=== PATIENT | female | born 1970 | race Two or more races ===

== ENCOUNTER → 2019-09-21 | Outpatient (CLI) | payer OTHER ==
[~2019-09-21] VITALS: Ht 160 cm; Wt 73.5 kg
== END | disposition home or self-care (01) ==
LOC: OFIC 805 12:18
DX: R42 Dizziness and giddiness (principal); H61.23 Impacted cerumen, bilateral; H90.3 Sensorineural hearing loss, bilateral

== ENCOUNTER 2019-12-19 11:39 | Outpatient (CLI) | payer OTHER | END 2019-12-19 16:31 | disposition home or self-care (01) | LOC: OFIC 805 11:39 | PROVIDERS: ATTEND Otolaryngology | DX: H91.92 Unspecified hearing loss, left ear (principal); R42 Dizziness and giddiness ==